=== PATIENT | male | born 1945 | race Caucasian/White ===

== ENCOUNTER 2023-02-13 11:52 | Emergency (ER) | payer OTHER, SELFPAY ==
[2023-02-13] VITALS (8 sets, daily range): BP systolic 151; BP diastolic 99; PULSE 61–76; RESP 13–31; TEMP 36.5; O2SAT 97; BMI 22.8
--- NOTE | 2023-02-13 12:06 | ECG_ITS ---
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
--- NOTE | 2023-02-13 12:06 | US_ITS ---
The [address] [address] Patient Name: BETTY JACKSON MRN: [id number] date: 1945 Sex: M Assigned Patient Location: ED.MAIN Current Patient Location: ER Accession/Order Number: [id number] Exam Date: 02/13/2023 13:20 Report Date: 02/13/2023 14:58 At the request of: JOSEPH BENITEZ Procedure: US venous doppler LE BI EXAMINATION: US venous doppler LE BI HISTORY: bilateral LE swelling COMPARISON: No relevant comparison available. FINDINGS: REGION: Bilateral lower extremities THROMBI: None. COMPRESSIBILITY: Normal compressibility. FLOW: Normal waveform and antegrade flow between 5 and 20 cm/s. OTHER: None. IMPRESSION: 1. No deep vein thrombus within the right or left lower extremity. Electronically authenticated by: MARILU CARLISLE Date: 02/13/2023 14:58
--- NOTE | 2023-02-13 12:06 | XR_ITS ---
[address] [address] Patient Name: BETTY JACKSON MRN: [id number] date: 1945 Sex: M Assigned Patient Location: ER Current Patient Location: ED.MAIN Accession/Order Number: [id number] Exam Date: 02/13/2023 12:52 Report Date: 02/13/2023 13:16 At the request of: JOSEPH BENITEZ Procedure: XR chest 1V EXAM: XR chest 1V at 1247 hours HISTORY: peripheral edema COMPARISON: None. TECHNIQUE: AP upright portable chest x-ray FINDINGS: The heart is not enlarged and the vasculature is not distended. No acute infiltrate, effusion or pneumothorax is identified. The osseous structures are grossly intact. IMPRESSION: No acute infiltrate or evidence of cardiac decompensation. Direct comparison with a previous study would be helpful in determining the chronicity of these findings. Electronically authenticated by: MICHAEL HENDRICKS Date: 02/13/2023 13:16
--- NOTE | 2023-02-13 12:10 | ED.GENADUL1 ---
HPI - General Adult General Chief complaint: Extremity Problem, Nontraumatic Stated complaint: FOOT SWELLING Time Seen by Provider: 02/13/23 11:59 Source: patient Mode of arrival: walk-in Limitations: no limitations History of Present Illness HPI narrative: cc - bilateral leg swelling Patient told us that for the last 2 months both feet and have been swollen. As time progressed the swelling moved into the lower legs and then into the calves. [facility] but the physician never examined his legs. Instead he referred the patient to a outreach specialist. The patient went there today and when they examined him they sent him to our ED for evaluation. The patient denies chest pain, shortness of breath or other symptoms aside from leg swelling. Related Data Home Medications Medication Instructions Recorded Confirmed acetaminophen 500 mg tablet 1,000 mg PO Q6H PRN pain 02/13/23 02/13/23 (Tylenol Extra Strength) cholecalciferol (vitamin D3) 50 50 mcg PO QDAY 02/13/23 02/13/23 mcg (2,000 unit) capsule cyanocobalamin (vitamin B-12) 1,000 mcg PO QDAY 02/13/23 02/13/23 1,000 mcg capsule cyclosporine 0.09 % eye drops in a 1 drp ophthalmic (eye) Q12H 02/13/23 02/13/23 dropperette levothyroxine 200 mcg capsule 200 mcg PO QDAY 02/13/23 02/13/23 multivitamin 1 tab PO QAM 02/13/23 02/13/23 phenytoin sodium extended 100 mg 100 mg PO BID 02/13/23 02/13/23 capsule pregabalin 150 mg capsule 150 mg PO BID 02/13/23 02/13/23 rosuvastatin 20 mg tablet 20 mg PO QDAY 02/13/23 02/13/23 warfarin 2.5 mg tablet 2.5 mg PO QDAY 02/13/23 02/13/23 Allergies Allergy/AdvReac Type Severity Reaction Status Date / Time No Known Drug Allergies Allergy Verified 02/13/23 11:59 PFSH PFSH Social History Smoking status: Former smoker Exam Narrative: Exam Narrative: Nurses notes and vital signs reviewed and patient is not hypoxic. afebrile General: Well-appearing and in no apparent distress. Skin: Warm, dry, no pallor noted. No rash on legs. Head: Normocephalic, atraumatic. Eye: Pupils are equal, round and EOMI. No scleral icterus. Ears, Nose, Mouth, and Throat: Oral mucosa is moist Cardiovascular: Regular Rate and Rhythm without murmur, gallop or rub. Respiratory: No accessory muscle use or respiratory distress. Lungs are clear to auscultation, no wheezing, rales or rhonchi Musculoskeletal: normal ROM, bilateral calf and popliteal tenderness, 1-2+ pitting bilateral lower extremity edema/swelling GI: Abdomen is soft, non-distended. Normal bowel sounds. No masses appreciated. No tenderness to palpation. No rebound, guarding, or rigidity noted. Neurological: A&O x4. No cranial nerve dysfunction observed. No truncal ataxia. Moves all extremities. Sensation intact. Psychiatric: Cooperative and interactive. Normal mood and affect. Constitutional: Vital Signs, click to edit/add: Vital Signs - 24 hr 02/13/23 11:59 02/13/23 12:23 02/13/23 12:19 Temperature 97.7 F Pulse Rate 72 Pulse Rate [Monito r] 76 Respiratory Rate 16 31 H Blood Pressure [Ri ght Arm] 151/99 H Pulse Oximetry 97 Oxygen Delivery Me thod Room Air Room Air 02/13/23 12:20 02/13/23 12:30 02/13/23 12:40 Temperature Pulse Rate 75 73 71 Pulse Rate [Monito r] Respiratory Rate 22 18 16 Blood Pressure [Ri ght Arm] Pulse Oximetry Oxygen Delivery Me thod 02/13/23 12:50 02/13/23 13:00 Temperature Pulse Rate 61 67 Pulse Rate [Monito r] Respiratory Rate 13 24 Blood Pressure [Ri ght Arm] Pulse Oximetry Oxygen Delivery Me thod Course Vital Signs Vital signs: Vital Signs Temperature 97.7 F 02/13/23 11:59 Pulse Rate 76 02/13/23 11:59 Respiratory Rate 16 02/13/23 11:59 Blood Pressure 151/99 H 02/13/23 11:59 Pulse Oximetry 97 02/13/23 11:59 Oxygen Delivery Method Room Air 02/13/23 11:59 Temperature 97.7 F 02/13/23 11:59 Pulse Rate 67 02/13/23 13:00 Respiratory Rate 24 02/13/23 13:00 Blood Pressure 151/99 H 02/13/23 11:59 Pulse Oximetry 97 02/13/23 11:59 Oxygen Delivery Method Room Air 02/13/23 12:23 Medical Decision Making MDM Narrative Medical decision making narrative: blood was drawn and sent for testing to evaluate the patient's renal function as well as his cardiac status in order to evaluate this patient's lower extremity edema. Bilateral lower strep and he ultrasound did not reveal any deep venous thromboses. renal function was normal. BNP was negative. Chest x-ray was unremarkable. Patient was informed of results and Dr. Rivas came and saw the patient as well. We discussed use of compression stockings and keeping the legs elevated. The patient was discharged home with recommendation follow-up with [facility]. He is already anticoagulated with Coumadin. Lab Data Labs: Lab Results 02/13/23 02/13/23 Range/Units 12:10 12:58 WBC 4.5 (4.0-11.0) 10^3/uL RBC 4.30 L (4.70-6.10) 10^6/uL Hgb 13.8 L (14.0-18.0) g/dL Hct 40.7 L (42.0-54.0) % MCV 94.7 H (80.0-94.0) fL MCH 32.1 (25.9-34.0) pg MCHC 33.9 (29.9-35.2) g/dL RDW 13.6 (11.0-15.0) % Plt Count 145 L (150-450) 10^3/uL MPV 10.3 (9.5-13.5) fL Neut % (Auto) 40.8 L (43.0-75.0) % Lymph % (Auto) 42.1 (20.5-60.0) % [place] % (Auto) 10.9 (1.7-12.0) % Eos % (Auto) 5.1 (0.9-7.0) % Baso % (Auto) 0.9 (0.2-2.0) % Neut # (Auto) 1.8 (1.4-6.5) 10^3/uL Lymph # (Auto) 1.9 (1.2-3.8) 10^3/uL [place] # (Auto) 0.5 (0.3-0.8) 10^3/uL Eos # (Auto) 0.2 (0.0-0.7) 10^3/uL Baso # (Auto) 0.0 (0.0-0.1) 10^3/uL Nucleated RBCs 0 PT 21.6 H (9.0-11.6) sec INR 2.13 APTT 38.4 H (22.3-36.2) sec D-Dimer <0.19 (<=0.59) mg/L FEU Sodium 139 (136-145) mmol/L Potassium 4.3 (3.5-5.1) mmol/L Chloride 102 (98-107) mmol/L Carbon Dioxide 26.4 (21.0-32.0) mmol/L Anion Gap 14.9 BUN 16.0 (7.0-18.0) mg/dL Creatinine 1.41 H (0.70-1.30) mg/dL Est GFR ( Amer) 59 L (>=60) Est GFR (Non-Af Amer) 48 L (>=60) BUN/Creatinine Ratio 11.3 Glucose 131 H (74-106) mg/dL Calcium 8.9 (8.5-10.1) mg/dL Total Bilirubin 0.4 (0.2-1.0) mg/dL AST 27 (15-37) U/L ALT 23 (16-63) U/L NT-Pro-B Natriuret Pep 125.0 (<=1800.0) pg/mL Total Protein 7.7 (6.4-8.2) g/dL Albumin 4.0 (3.4-5.0) g/dL Globulin 3.7 g/dL Albumin/Globulin Ratio 1.1 Free T4 0.95 (0.76-1.46) ng/dL Imaging Data Venous US: Radiologist's impression: Patient Name: BETTY JACKSON MRN: [facility]:[id number] date: 1945 Sex: M Assigned Patient Location: ED.MAIN Current Patient Location: ER Accession/Order Number: [id number] Exam Date: 02/13/2023 13:20 Report Date: 02/13/2023 14:58 At the request of: JOSEPH BENITEZ Procedure: US venous doppler LE BI EXAMINATION: US venous doppler LE BI HISTORY: bilateral LE swelling COMPARISON: No relevant comparison available. FINDINGS: REGION: Bilateral lower extremities THROMBI: None. COMPRESSIBILITY: Normal compressibility. FLOW: Normal waveform and antegrade flow between 5 and 20 cm/s. OTHER: None. IMPRESSION: 1. No deep vein thrombus within the right or left lower extremity. Electronically authenticated by: MARILU CARLISLE Date: 02/13/2023 14:58 Chest x-ray: Radiologist's impression: Patient Name: BETTY JACKSON MRN: [facility]:[id number] date: 1945 Sex: M Assigned Patient Location: ER Current Patient Location: ED.MAIN Accession/Order Number: [id number] Exam Date: 02/13/2023 12:52 Report Date: 02/13/2023 13:16 At the request of: JOSEPH BENITEZ Procedure: XR chest 1V EXAM: XR chest 1V at 1247 hours HISTORY: peripheral edema COMPARISON: None. TECHNIQUE: AP upright portable chest x-ray FINDINGS: The heart is not enlarged and the vasculature is not distended. No acute infiltrate, effusion or pneumothorax is identified. The osseous structures are grossly intact. IMPRESSION: No acute infiltrate or evidence of cardiac decompensation. Direct comparison with a previous study would be helpful in determining the chronicity of these findings. Electronically authenticated by: MICHAEL HENDRICKS Date: 02/13/2023 13:16 ECG Data Interpretation: EKG interpretation: Emergency Department physician interpretation. Normal sinus rhythm at 70bpm. Normal axis, normal intervals. Non-specific ST-T changes. No ST segment elevation or depression. Discharge Plan Discharge Chief Complaint: Extremity Problem, Nontraumatic Clinical Impression: Edema of both lower extremities due to peripheral venous insufficiency Patient Disposition: Home, Self-Care Time of Disposition Decision: 15:40 Prescriptions: No Action cyclosporine 0.09 % dropperette 1 drp ophthalmic (eye) Q12H warfarin 2.5 mg tablet 2.5 mg PO QDAY phenytoin sodium extended 100 mg capsule 100 mg PO BID rosuvastatin 20 mg tablet 20 mg PO QDAY pregabalin 150 mg capsule 150 mg PO BID cyanocobalamin (vitamin B-12) 1,000 mcg capsule 1,000 mcg PO QDAY multivitamin Tablet 1 tab PO QAM levothyroxine 200 mcg capsule 200 mcg PO QDAY cholecalciferol (vitamin D3) 50 mcg (2,000 unit) capsule 50 mcg PO QDAY acetaminophen [Tylenol Extra Strength] 500 mg tablet 1,000 mg PO Q6H PRN (Reason: pain) Instructions: Lymphedema (ED) Stand Alone Forms: Portal Instructions Referrals: Physician,Non-Staff, MD [Primary Care Provider] - 1 week
[2023-02-13 12:19] LABS: Basophils Percent Auto 0.9 % (0.2-2.0); Eosinophils Absolute Auto 0.2 10^3/uL (0.0-0.7); Eosinophils Percent Auto 5.1 % (0.9-7.0); Hematocrit 40.7 % (42.0-54.0); Hemoglobin 13.8 g/dL (14.0-18.0); Immature Granulocytes Abs Auto 0.01 10^3/uL (0.00-0.03); Immature Granulocytes Pct Auto 0.2 % (0.0-0.5); Lymphocytes Absolute Auto 1.9 10^3/uL (1.2-3.8); Lymphocytes Percent Auto 42.1 % (20.5-60.0); Mean Corpuscular HGB Conc 33.9 g/dL (29.9-35.2); Mean Corpuscular Hemoglobin 32.1 pg (25.9-34.0); Mean Corpuscular Volume 94.7 fL (80.0-94.0); Mean Platelet Volume 10.3 fL (9.5-13.5); Monocytes Absolute Auto 0.5 10^3/uL (0.3-0.8); Monocytes Percent Auto 10.9 % (1.7-12.0); Neutrophils Absolute Auto 1.8 10^3/uL (1.4-6.5); Neutrophils Percent Auto 40.8 % (43.0-75.0); Nucleated Red Blood Cells 0; Platelet Count 145 10^3/uL (150-450); Red Cell Distribution Width 13.6 % (11.0-15.0); White Blood Count 4.5 10^3/uL (4.0-11.0)
[2023-02-13 12:51] LABS: D Dimer <0.19 mg/L FEU (<=0.59)
[2023-02-13 12:56] LABS: Alanine Aminotransferase 23 U/L (16-63); Albumin Globulin Ratio 1.1; Alkaline Phosphatase 122 U/L (46-116); Anion Gap 14.9; Aspartate Amino Transferase 27 U/L (15-37); BUN Creatinine Ratio 11.3; Bilirubin Total 0.4 mg/dL (0.2-1.0); Calcium 8.9 mg/dL (8.5-10.1); Carbon Dioxide 26.4 mmol/L (21.0-32.0); Chloride 102 mmol/L (98-107); Estimated GFR (African America 59 (>=60); Estimated GFR (Non-African Ame 48 (>=60); Globulin 3.7 g/dL; Glucose 131 mg/dL (74-106); Potassium 4.3 mmol/L (3.5-5.1); Sodium 139 mmol/L (136-145); Total Protein 7.7 g/dL (6.4-8.2)
[2023-02-13 13:40] LABS: INR 2.13; Partial Thromboplastin Time 38.4 sec (22.3-36.2); Prothrombin Time 21.6 sec (9.0-11.6)
[2023-02-13 13:48] LABS: Free T4 0.95 ng/dL (0.76-1.46)
[2023-02-13 13:51] LABS: Phenytoin Dilantin 18.2 ug/mL (10.0-20.0)
[2023-02-13 14:13] LABS: Free T3 2.08 pg/mL (2.18-3.98)
== END 2023-02-13 16:09 | disposition home or self-care (01) ==
PROVIDERS: Emergency Provider Emergency Medicine
DX: R60.0 Localized edema (principal); I87.2 Venous insufficiency (chronic) (peripheral); Z79.899 Other long term (current) drug therapy; Z79.01 Long term (current) use of anticoagulants; Z87.891 Personal history of nicotine dependence
CPT/HCPCS: 36415; 71045; 80053; 80185; 83880; 84439; 84481; 85025; 85378; 85610; 85730; 93005; 93970; 99285

== ENCOUNTER 2024-09-13 14:08 | Emergency (ER) | payer OTHER, SELFPAY ==
[2024-09-13 14:20] VITALS: BP 147/86; PULSE 69; TEMP 36.7; O2SAT 98; BMI 25.8
--- NOTE | 2024-09-13 15:11 | ED.GENADUL1 ---
HPI HPI - General Adult General Chief complaint: Extremity Problem, Nontraumatic Stated complaint: RASH Time Seen by Provider: 09/13/24 14:56 Mode of arrival: walk-in Related Data Home Medications ?Medication ?Instructions ?Recorded ?Confirmed acetaminophen 500 mg tablet 1,000 mg PO Q6H PRN pain 02/13/23 09/13/24 (Tylenol Extra Strength) cholecalciferol (vitamin D3) 50 50 mcg PO QDAY 02/13/23 09/13/24 mcg (2,000 unit) capsule cyanocobalamin (vitamin B-12) 1,000 mcg PO QDAY 02/13/23 09/13/24 1,000 mcg capsule cyclosporine 0.09 % eye drops in a 1 drp ophthalmic (eye) Q12H 02/13/23 09/13/24 dropperette levothyroxine 200 mcg capsule 200 mcg PO QDAY 02/13/23 09/13/24 multivitamin 1 tab PO QAM 02/13/23 09/13/24 phenytoin sodium extended 100 mg 100 mg PO BID 02/13/23 09/13/24 capsule pregabalin 150 mg capsule 150 mg PO BID 02/13/23 09/13/24 rosuvastatin 20 mg tablet 20 mg PO QDAY 02/13/23 09/13/24 warfarin 2.5 mg tablet 2.5 mg PO QDAY 02/13/23 09/13/24 Allergies Allergy/AdvReac Type Severity Reaction Status Date / Time No Known Drug Allergies Allergy Verified 02/13/23 11:59 Opioid HPI Opioid Management Most Recent Opioid Data: No Data to Display PFSH PFS Social History Smoking status: Former smoker Little interest or pleasure in doing things: not at all Feeling down, depressed, or hopeless: not at all Exam Constitutional Vital Signs, click to edit/add: Last Vital Signs Temp 98.0 F 09/13/24 14:20 Pulse 69 09/13/24 14:20 Resp 18 09/13/24 14:20 BP 147/86 H 09/13/24 14:20 Pulse Ox 98 09/13/24 14:20 Course Vital Signs Vital signs: Vital Signs Temperature 98.0 F 09/13/24 14:20 Pulse Rate 69 09/13/24 14:20 Respiratory Rate 18 09/13/24 14:20 Blood Pressure 147/86 H 09/13/24 14:20 Pulse Oximetry 98 09/13/24 14:20 Temperature 98.0 F 09/13/24 14:20 Pulse Rate 69 09/13/24 14:20 Respiratory Rate 18 09/13/24 14:20 Blood Pressure 147/86 H 09/13/24 14:20 Pulse Oximetry 98 09/13/24 14:20 Discharge Plan Discharge Chief Complaint: Extremity Problem, Nontraumatic Prescriptions / Home Meds: No Action cyclosporine 0.09 % dropperette 1 drp ophthalmic (eye) Q12H warfarin 2.5 mg tablet 2.5 mg PO QDAY phenytoin sodium extended 100 mg capsule 100 mg PO BID rosuvastatin 20 mg tablet 20 mg PO QDAY pregabalin 150 mg capsule 150 mg PO BID cyanocobalamin (vitamin B-12) 1,000 mcg capsule 1,000 mcg PO QDAY multivitamin Tablet 1 tab PO QAM levothyroxine 200 mcg capsule 200 mcg PO QDAY cholecalciferol (vitamin D3) 50 mcg (2,000 unit) capsule 50 mcg PO QDAY acetaminophen [Tylenol Extra Strength] 500 mg tablet 1,000 mg PO Q6H PRN (Reason: pain) Print Language: [place] Referrals: Physician,Non-Staff, MD [Primary Care Provider] - 1 week
[2024-09-13 15:43] LABS: Basophils Percent Auto 0.7 % (0.2-2.0); Eosinophils Absolute Auto 0.3 10^3/uL (0.0-0.7); Eosinophils Percent Auto 5.9 % (0.9-7.0); Hematocrit 38.5 % (42.0-54.0); Hemoglobin 13.1 g/dL (14.0-18.0); Immature Granulocytes Abs Auto 0.01 10^3/uL (0.00-0.03); Immature Granulocytes Pct Auto 0.2 % (0.0-0.5); Lymphocytes Absolute Auto 2.2 10^3/uL (1.2-3.8); Lymphocytes Percent Auto 40.4 % (20.5-60.0); Mean Corpuscular Hemoglobin 31.8 pg (25.9-34.0); Mean Corpuscular Volume 93.4 fL (80.0-94.0); Mean Platelet Volume 10.7 fL (9.5-13.5); Monocytes Absolute Auto 0.6 10^3/uL (0.3-0.8); Monocytes Percent Auto 10.6 % (1.7-12.0); Neutrophils Absolute Auto 2.3 10^3/uL (1.4-6.5); Neutrophils Percent Auto 42.2 % (43.0-75.0); Platelet Count 139 10^3/uL (150-450); Red Blood Count 4.12 10^6/uL (4.70-6.10); Red Cell Distribution Width 13.4 % (11.0-15.0); White Blood Count 5.4 10^3/uL (4.0-11.0)
[2024-09-13 15:54] LABS: Alanine Aminotransferase 15 U/L (16-63); Albumin Globulin Ratio 1.1; Albumin Level 3.5 g/dL (3.4-5.0); Alkaline Phosphatase 128 U/L (46-116); Anion Gap 10.3; Aspartate Amino Transferase 33 U/L (15-37); BUN Creatinine Ratio 14.2; Bilirubin Total 0.3 mg/dL (0.2-1.0); Calcium 8.6 mg/dL (8.5-10.1); Chloride 107 mmol/L (98-107); Estimated GFR (African America 55 (>=60 mL/min/1.73m^2); Estimated GFR (Non-African Ame 46 (>=60 mL/min/1.73m^2); Globulin 3.1 g/dL; Glucose 107 mg/dL (74-106); Potassium 4.3 mmol/L (3.5-5.1); Sodium 140 mmol/L (136-145); Total Protein 6.6 g/dL (6.4-8.2)
[2024-09-13 15:59] LABS: INR 3.31; Prothrombin Time 31.2 sec (9.0-11.6)
[2024-09-13 16:02] LABS: Partial Thromboplastin Time 42.5 sec (22.3-36.2)
[2024-09-13 16:16] LABS: C Reactive Protein <0.50 mg/dL (<=0.50)
[2024-09-13 16:55] VITALS: BP 153/89; PULSE 66; O2SAT 100
--- NOTE | 2024-09-13 20:41 | ED_ITS ---
HPI HPI - General Adult General Chief complaint: Extremity Problem, Nontraumatic Stated complaint: RASH Time Seen by Provider: 09/13/24 14:56 Source: patient and family Mode of arrival: walk-in History of Present Illness HPI narrative: 79-year-old male presents to the emergency department with family with complaint of rash to both of his legs. First noticed a couple days ago. States rash is red, very itchy. He does wear compression stockings. Denies any fever, chills, pain. Quality:?As above Severity:?Mild Timing:?2 days, constant Context: Normal setting and activity? Modifying factors:?None Associated symptoms: Itchy Related Data Home Medications ?Medication ?Instructions ?Recorded ?Confirmed acetaminophen 500 mg tablet 1,000 mg PO Q6H PRN pain 02/13/23 09/13/24 (Tylenol Extra Strength) cholecalciferol (vitamin D3) 50 50 mcg PO QDAY 02/13/23 09/13/24 mcg (2,000 unit) capsule cyanocobalamin (vitamin B-12) 1,000 mcg PO QDAY 02/13/23 09/13/24 1,000 mcg capsule cyclosporine 0.09 % eye drops in a 1 drp ophthalmic (eye) Q12H 02/13/23 09/13/24 dropperette levothyroxine 200 mcg capsule 200 mcg PO QDAY 02/13/23 09/13/24 multivitamin 1 tab PO QAM 02/13/23 09/13/24 phenytoin sodium extended 100 mg 100 mg PO BID 02/13/23 09/13/24 capsule pregabalin 150 mg capsule 150 mg PO BID 02/13/23 09/13/24 rosuvastatin 20 mg tablet 20 mg PO QDAY 02/13/23 09/13/24 warfarin 2.5 mg tablet 2.5 mg PO QDAY 02/13/23 09/13/24 Previous Rx's ?Medication ?Instructions ?Recorded diphenhydramine HCl 25 mg capsule 25 - 50 mg (1 - 2 x 25 mg) PO Q8H 09/13/24 (Benadryl) PRN itching #20 caps prednisone 20 mg tablet 40 mg (2 x 20 mg) PO DAILY 5 days 09/13/24 #10 tabs Allergies Allergy/AdvReac Type Severity Reaction Status Date / Time No Known Drug Allergies Allergy Verified 02/13/23 11:59 Opioid HPI Opioid Management Most Recent Opioid Data: No Data to Display Review of Systems ROS Narrative CONST: Denies fever, chills HENT: Denies congestion, sore throat, trouble swallowing, tongue swelling EYES: Denies eye itching, eye redness, eye swelling RESP: Denies difficulty breathing, choking MS: Denies swelling SKIN: +rash.? Denies wound NEURO: Denies numbness, paresthesias, weakness PFSH PFSH Social History Smoking status: Former smoker Little interest or pleasure in doing things: not at all Feeling down, depressed, or hopeless: not at all Exam Narrative Exam Narrative: Vital signs reviewed Nurses notes noted CONST: Nontoxic, well appearing, well nourished, in no distress.? No diaphoresis.?? HENT: normocephalic, atraumatic, moist mucous membrane, no abnormalities of the nose noted, hearing normal EYES: normal appearing conjunctiva, no apparent discharge bilat NECK: normal appearance MS: no edema, tenderness SKIN: (+) RASH. Rash is bright red, nonblanching similar in appearance to petechiae. Only located to the pretibial regions bilaterally. Lesions are in clusters and there are some remote, isolated lesions as well. Nontender. Just complains of itching. Distal pulses intact. NEURO: A&Ox 3 PSYCH: normal mood, affect Constitutional Vital Signs, click to edit/add: Last Vital Signs Temp 98.0 F 09/13/24 14:20 Pulse 66 09/13/24 16:55 Resp 12 09/13/24 16:55 BP 153/89 H 09/13/24 16:55 Pulse Ox 100 09/13/24 16:55 O2 Del Method Room Air 09/13/24 16:55 Course Vital Signs Vital signs: Vital Signs Temperature 98.0 F 09/13/24 14:20 Pulse Rate 69 09/13/24 14:20 Respiratory Rate 18 09/13/24 14:20 Blood Pressure 147/86 H 09/13/24 14:20 Pulse Oximetry 98 09/13/24 14:20 Temperature 98.0 F 09/13/24 14:20 Pulse Rate 66 09/13/24 16:55 Respiratory Rate 12 09/13/24 16:55 Blood Pressure 153/89 H 09/13/24 16:55 Pulse Oximetry 100 09/13/24 16:55 Oxygen Delivery Method Room Air 09/13/24 16:55 Medical Decision Making MDM Narrative Medical decision making narrative: This is a pleasant 79-year-old male presents to the emergency department with family with complaint of rash to both his legs. Describes the rash as very itchy. Onset 2 days ago. On arrival, afebrile, vital signs are stable. Exam, nontoxic, well-appearing patient in no apparent distress. He has a rash that is similar to petechiae, nonblanching to the pretibial regions of both of his legs. No other rash found on patient's body. He denies any tenderness with the rash. Distal pulses intact. Neurovascularly intact Labs reveal no leukocytosis, anemia. Platelet count 139. No electrolyte imbalance. No worsening of renal functions with BUN of 21 and creatinine 1.48. This was compared to 6.23. CRP less than 0.50. Patient is on Coumadin. INR little elevated at 3.31. PTT 31.2. aPTT 42.5 Favor nonspecific rash Meningococcemia less likely as patient is afebrile, nontoxic, no leukocytosis, no head or neck pain Leukemia less likely based on lab testing DIC less likely as rash is localized and not widespread. He is a little thrombocytopenic, but levels at not alarming History and Record Review Discussion with independent historian: and daughter Additional records reviewed: prior labs/imaging: Prior renal functions as noted above Disposition ? The patient was discharged. Prescriptions sent to pharmacy: Benadryl, prednisone Plan: Patient will be discharged to home. Condition at time of disposition: stable ? Advised to follow up with primary provider. Advised to return for any worsening and/or development of new, concerning signs or symptoms PLEASE NOTE: Portions of the medical record may have been produced using electronic contract programmer and may contain errors with respect to translation of words which may not have been identified prior to finalization of the chart. Lab Data Lab results reviewed: Yes I reviewed the patient's lab results Labs: Lab Results 09/13/24 Range/Units 15:20 WBC 5.4 (4.0-11.0) 10^3/uL RBC 4.12 L (4.70-6.10) 10^6/uL Hgb 13.1 L (14.0-18.0) g/dL Hct 38.5 L (42.0-54.0) % MCV 93.4 (80.0-94.0) fL MCH 31.8 (25.9-34.0) pg MCHC 34.0 (29.9-35.2) g/dL RDW 13.4 (11.0-15.0) % Plt Count 139 L (150-450) 10^3/uL MPV 10.7 (9.5-13.5) fL Neut % (Auto) 42.2 L (43.0-75.0) % Lymph % (Auto) 40.4 (20.5-60.0) % [place] % (Auto) 10.6 (1.7-12.0) % Eos % (Auto) 5.9 (0.9-7.0) % Baso % (Auto) 0.7 (0.2-2.0) % Neut # (Auto) 2.3 (1.4-6.5) 10^3/uL Lymph # (Auto) 2.2 (1.2-3.8) 10^3/uL [place] # (Auto) 0.6 (0.3-0.8) 10^3/uL Eos # (Auto) 0.3 (0.0-0.7) 10^3/uL Baso # (Auto) 0.0 (0.0-0.1) 10^3/uL Abs Immat Gran (auto) 0.01 (0.00-0.03) 10^3/uL Imm/Tot Granulo (auto) 0.2 (0.0-0.5) % PT 31.2 H (9.0-11.6) sec INR 3.31 APTT 42.5 H* (22.3-36.2) sec Sodium 140 (136-145) mmol/L Potassium 4.3 (3.5-5.1) mmol/L Chloride 107 (98-107) mmol/L Carbon Dioxide 27.0 (21.0-32.0) mmol/L Anion Gap 10.3 BUN 21.0 H (7.0-18.0) mg/dL Creatinine 1.48 H (0.70-1.30) mg/dL Est GFR ( Amer) 55 L (>=60 mL/min/1.73m^2) Est GFR (Non-Af Amer) 46 L (>=60 mL/min/1.73m^2) BUN/Creatinine Ratio 14.2 Glucose 107 H (74-106) mg/dL Calcium 8.6 (8.5-10.1) mg/dL Total Bilirubin 0.3 (0.2-1.0) mg/dL AST 33 (15-37) U/L ALT 15 L (16-63) U/L Alkaline Phosphatase 128 H (46-116) U/L C-Reactive Protein <0.50 (<=0.50) mg/dL Total Protein 6.6 (6.4-8.2) g/dL Albumin 3.5 (3.4-5.0) g/dL Globulin 3.1 g/dL Albumin/Globulin Ratio 1.1 Discharge Plan Discharge Chief Complaint: Extremity Problem, Nontraumatic Clinical Impression: Rash and nonspecific skin eruption, Pruritic rash Patient Disposition: Home, Self-Care Time of Disposition Decision: 17:16 Condition: Good Mode of Transportation: Private Vehicle Prescriptions / Home Meds: New prednisone 20 mg tablet 40 mg PO DAILY 5 Days Qty: 10 0RF diphenhydramine HCl [Benadryl] 25 mg capsule 25 - 50 mg PO Q8H PRN (Reason: itching) Qty: 20 0RF No Action cyclosporine 0.09 % dropperette 1 drp ophthalmic (eye) Q12H warfarin 2.5 mg tablet 2.5 mg PO QDAY phenytoin sodium extended 100 mg capsule 100 mg PO BID rosuvastatin 20 mg tablet 20 mg PO QDAY pregabalin 150 mg capsule 150 mg PO BID cyanocobalamin (vitamin B-12) 1,000 mcg capsule 1,000 mcg PO QDAY multivitamin Tablet 1 tab PO QAM levothyroxine 200 mcg capsule 200 mcg PO QDAY cholecalciferol (vitamin D3) 50 mcg (2,000 unit) capsule 50 mcg PO QDAY acetaminophen [Tylenol Extra Strength] 500 mg tablet 1,000 mg PO Q6H PRN (Reason: pain) Print Language: Slovenian Instructions: Acute Rash (ED) Referrals: Physician,Non-Staff, MD [Primary Care Provider] - 1 week Discharge Date/Time: 09/13/24 17:38
== END 2024-09-13 17:38 | disposition home or self-care (01) ==
PROVIDERS: Physician Assistant; Emergency Provider Emergency Medicine
DX: R21 Rash and other nonspecific skin eruption (principal); L29.9 Pruritus, unspecified; Z87.891 Personal history of nicotine dependence
CPT/HCPCS: 36415; 80053; 85025; 85610; 85730; 86140; 99283

== ENCOUNTER 2024-12-22 09:50 | Emergency (ER) | payer OTHER, SELFPAY ==
[2024-12-22 09:56] VITALS: BP 203/102; PULSE 70; O2SAT 99; BMI 27.1
[2024-12-22 10:16] VITALS: TEMP 36.5
[2024-12-22] MEDS: HYDROCODONE/ACET 5-325 MG TABLET 1 TAB PO (10:21)
[2024-12-22] MEDS: CYCLOBENZAPRINE HCL 10 MG TABLET PO (10:21)
--- NOTE | 2024-12-22 10:52 | ED.GENADUL1 ---
HPI HPI - General Adult General Chief complaint: Neck Pain/Injury Stated complaint: neck and shoulder pain Time Seen by Provider: 12/22/24 09:59 Source: patient and family Mode of arrival: walk-in Limitations: no limitations History of Present Illness HPI narrative: Patient presents to ED complaining of neck pain. He said it started last Friday but got worse yesterday and today. He said he was working on his puzzles a lot kind of hunched over and that was starting to cause neck pain. He then thinks he slept on it wrong. He has pain on both sides of the neck pain with turning to the right the left and looking up or down. He said when he looks down he gets a headache and sees stars due to the pain. No known injury but he has been falling somewhat recently but not in the past week. He denies any vision changes. No weakness in the arms or legs. No fevers. He denies any congestion. He has been trying Tylenol at home but no relief with that. Related Data Home Medications ?Medication ?Instructions ?Recorded ?Confirmed acetaminophen 500 mg tablet 1,000 mg PO Q6H PRN pain 02/13/23 09/13/24 (Tylenol Extra Strength) cholecalciferol (vitamin D3) 50 50 mcg PO QDAY 02/13/23 09/13/24 mcg (2,000 unit) capsule cyanocobalamin (vitamin B-12) 1,000 mcg PO QDAY 02/13/23 09/13/24 1,000 mcg capsule cyclosporine 0.09 % eye drops in a 1 drp ophthalmic (eye) Q12H 02/13/23 09/13/24 dropperette levothyroxine 200 mcg capsule 200 mcg PO QDAY 02/13/23 09/13/24 multivitamin 1 tab PO QAM 02/13/23 09/13/24 phenytoin sodium extended 100 mg 100 mg PO BID 02/13/23 09/13/24 capsule pregabalin 150 mg capsule 150 mg PO BID 02/13/23 09/13/24 rosuvastatin 20 mg tablet 20 mg PO QDAY 02/13/23 09/13/24 warfarin 2.5 mg tablet 2.5 mg PO QDAY 02/13/23 09/13/24 Previous Rx's ?Medication ?Instructions ?Recorded diphenhydramine HCl 25 mg capsule 25 - 50 mg (1 - 2 x 25 mg) PO Q8H 09/13/24 (Benadryl) PRN itching #20 caps prednisone 20 mg tablet 40 mg (2 x 20 mg) PO DAILY 5 days 09/13/24 #10 tabs cyclobenzaprine 10 mg tablet 10 mg PO TID PRN pain #20 tabs 12/22/24 hydrocodone 5 mg-acetaminophen 325 1 tab PO Q6H PRN pain #14 tabs 12/22/24 mg tablet Allergies Allergy/AdvReac Type Severity Reaction Status Date / Time No Known Drug Allergies Allergy Verified 12/22/24 09:56 Opioid HPI Opioid Management Most Recent Opioid Data: Last Pain Scale 6 12/22/24 11:00 12/22/24 Last ED Pain Assessment 12/22/24 11:00 Last MAR Pain Assessment 12/22/24 10:21 Review of Systems ROS Status of ROS 10 or more systems reviewed and unremarkable except as noted in history and below PFSH PFSH Social History Smoking status: Former smoker Little interest or pleasure in doing things: not at all Feeling down, depressed, or hopeless: not at all Exam Narrative Exam Narrative: General: alert, no acute distress Cardiovascular: regular rate and rhythm, normal peripheral perfusion. Respiratory: Lungs CTA, respirations non labored. Extremities: no deformity, no trauma. Neurological: oriented x 4, LOC appropriate for age. Tenderness to palpation along the cervical paraspinal and sternocleidomastoid muscles. Limited range of motion when looking left right up and down. Normal distal pulses and sensation in upper extremities. 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 Constitutional Vital Signs, click to edit/add: Last Vital Signs Temp 97.7 F 12/22/24 10:16 Pulse 70 12/22/24 11:02 Resp 18 12/22/24 11:02 BP 135/92 H 12/22/24 11:02 Pulse Ox 100 12/22/24 11:02 O2 Del Method Room Air 12/22/24 09:56 Course Vital Signs Vital signs: Vital Signs Pulse Rate 70 12/22/24 09:56 Respiratory Rate 18 12/22/24 09:56 Blood Pressure 203/102 H 12/22/24 09:56 Pulse Oximetry 99 12/22/24 09:56 Oxygen Delivery Method Room Air 12/22/24 09:56 Temperature 97.7 F 12/22/24 10:16 Pulse Rate 70 12/22/24 11:02 Respiratory Rate 18 12/22/24 11:02 Blood Pressure 135/92 H 12/22/24 11:02 Pulse Oximetry 100 12/22/24 11:02 Oxygen Delivery Method Room Air 12/22/24 09:56 Medical Decision Making MDM Narrative Medical decision making narrative: Patient was feeling a lot better after [place] and Flexeril. He was able to increase his range of motion. CT brain is negative for any acute findings. CT cervical shows severe arthritis and degenerative disc disease C5-C7. Most likely the patient has severe arthritis which is irritating the nerve roots and causing muscle spasms and decreased range of motion. Patient instructed to follow-up with family doctor, [facility] I also told him going to a chiropractor might help his neck pain. Use the pain medications for the acute issue, use heat and gentle stretching to help the muscle tension. Return to ED if worsening symptoms or any neurological deficits otherwise follow-up outpatient. Patient and family are comfortable with care plan for home. Differential Diagnosis Differential Diagnosis: Cervical sprain, strain, intracranial hemorrhage Imaging Data CT scan - head: Attestation: I have reviewed the pertinent imaging results. Discharge Plan Discharge Chief Complaint: Neck Pain/Injury Clinical Impression: Strain of neck muscle Patient Disposition: Home, Self-Care Time of Disposition Decision: 11:27 Condition: Good Mode of Transportation: Private Vehicle Prescriptions / Home Meds: New cyclobenzaprine 10 mg tablet 10 mg PO TID PRN (Reason: pain) Qty: 20 0RF hydrocodone-acetaminophen 5-325 mg tablet 1 tab PO Q6H PRN (Reason: pain) Qty: 14 0RF No Action prednisone 20 mg tablet 40 mg PO DAILY 5 Days Qty: 10 0RF diphenhydramine HCl [Benadryl] 25 mg capsule 25 - 50 mg PO Q8H PRN (Reason: itching) Qty: 20 0RF cyclosporine 0.09 % dropperette 1 drp ophthalmic (eye) Q12H warfarin 2.5 mg tablet 2.5 mg PO QDAY phenytoin sodium extended 100 mg capsule 100 mg PO BID rosuvastatin 20 mg tablet 20 mg PO QDAY pregabalin 150 mg capsule 150 mg PO BID cyanocobalamin (vitamin B-12) 1,000 mcg capsule 1,000 mcg PO QDAY multivitamin Tablet 1 tab PO QAM levothyroxine 200 mcg capsule 200 mcg PO QDAY cholecalciferol (vitamin D3) 50 mcg (2,000 unit) capsule 50 mcg PO QDAY acetaminophen [Tylenol Extra Strength] 500 mg tablet 1,000 mg PO Q6H PRN (Reason: pain) Print Language: [place] Instructions: Cervical Sprain (ED) Referrals: Physician,Non-Staff, MD [Primary Care Provider] - 1 week Discharge Date/Time: 12/22/24 11:44
[2024-12-22 11:02] VITALS: BP 135/92; PULSE 70; O2SAT 100
== END 2024-12-22 11:44 | disposition home or self-care (01) ==
PROVIDERS: Emergency Provider Emergency Medicine
DX: S16.1XXA Strain of muscle, fascia and tendon at neck level, initial encounter (principal); X58.XXXA Exposure to other specified factors, initial encounter; Z87.891 Personal history of nicotine dependence; M50.322 Other cervical disc degeneration at C5-C6 level; M50.323 Other cervical disc degeneration at C6-C7 level
CPT/HCPCS: 70450; 72125; 99284